=== PATIENT | female | born 2000 | race Two or more races ===

== ENCOUNTER 2025-02-27 15:05 | Emergency (ER) | payer MEDICAID ==
[~2025-02-27] VITALS: Ht 157.5 cm; Wt 68.0 kg
[~2025-02-27 15:05] MED LIST: AMOX250S5 PO
[2025-02-27 15:07] VITALS: BP 114/74
[2025-02-27] MEDS ORDERED: OXYC-128 PO (15:34)
[2025-02-27] MEDS ORDERED: CLIN300C12 PO (15:34)
[2025-02-27 15:53] VITALS: BP 114/74; TEMP 98.7; O2SAT 99
== END 2025-02-27 15:43 | disposition home or self-care (01) ==
LOC: ER 15:05
DX: K08.89 Other specified disorders of teeth and supporting structures (principal)
CPT/HCPCS: A4606; A4663